=== PATIENT | female | born 1990 | race Caucasian/White ===

== ENCOUNTER → 2017-11-14 18:53 | Outpatient (CLI) | payer MEDICAID, SELFPAY ==
[2017-11-17 19:21] LABS: Neisseria gonorrhoeae, NAA Negative (Negative)
== END ==
PROVIDERS: PCP Nurse Practitioner Obstetrics & Gynecology; Visit Provider Nurse Practitioner Obstetrics & Gynecology
DX: Z72.53 High risk bisexual behavior (principal)
CPT/HCPCS: 87491; 87591

== ENCOUNTER → 2019-09-02 14:49 | Outpatient (CLI) | payer MEDICAID, SELFPAY ==
[2019-09-02 15:14] LABS: Basophils % 0.2 % (0.1-2.0); Eosinophils % 0.3 % (0.1-12.0); Hematocrit 40.1 % (37.0-47.0); Hemoglobin 13.7 g/dL (12.2-16.2); Lymphocytes # 1.7 K/mm3 (0.7-4.5); Lymphocytes % 15.6 % (10-50); Mean Corpuscular HGB Conc 34.1 g/dL (31.8-35.4); Mean Corpuscular Hemoglobin 33.3 pg (27.0-31.2); Mean Corpuscular Volume 97.7 fl (81-99); Mean Platelet Volume 9.6 fl (7.4-10.4); Monocytes # 0.4 K/mm3 (0.1-1.0); Monocytes % 3.6 % (1.7-9.3); Neutrophils # 8.5 K/mm3 (1.8-7.8); Neutrophils % 80.3 % (37.0-80.0); Platelet Count 255 K/mm3 (142-424); Red Cell Distribution Width 12.3 % (11.5-17.5); White Blood Count 10.6 K/mm3 (4.8-10.8)
[2019-09-04 06:12] LABS: Hepatitis B Surface Antigen Negative (Negative); Hepatitis C Antibody >11.0 s/co ratio (0.0-0.9)
[2019-09-04 11:21] LABS: HIV Screen 4th Generation wRfx Non Reactive (Non Reactive); Rapid Plasma Reagin Ab Titer Non Reactive (NonRea<1:1); Rubella Antibodies, IgG 1.11 index (Immune >0.99)
== END ==
PROVIDERS: Visit Provider Nurse Practitioner Obstetrics & Gynecology
DX: Z34.90 Encounter for supervision of normal pregnancy, unspecified, unspecified trimester (principal)
CPT/HCPCS: 36415; 85025; 86592; 86703; 86762; 86850; 87340; 87380; G0432

== ENCOUNTER → 2019-09-05 09:37 | Outpatient (CLI) | payer MEDICAID, SELFPAY ==
--- NOTE | 2019-09-05 09:40 | US_ITS ---
PROCEDURE: US OB <= 14 WEEKS FETUS CLINICAL INDICATION: US T/V OB Dates COMPARISON: No exams were available for comparison FINDINGS: An intrauterine gestational sac is present with a pole with a crown-rump length of 5.37 cm correlating to gestational age of 12.14 week. heart tones are present with an FHR of 167 bpm. Unremarkable adnexa IMPRESSION: Single live IUP at 12 weeks 1 day. Estimated due date by Ultrasound is 03/18/2020 Dictated by: Joey Garcia MD 09/05/2019 17:38 Electronically signed by Joey Garcia MD in [facility] 09/05/2019 17:38
== END ==
PROVIDERS: Visit Provider Nurse Practitioner Obstetrics & Gynecology
DX: O26.841 Uterine size-date discrepancy, first trimester (principal)
CPT/HCPCS: 76801

== ENCOUNTER → 2019-11-03 14:18 | Outpatient (CLI) | payer OTHER, SELFPAY ==
--- NOTE | 2019-11-03 14:18 | US_ITS ---
PROCEDURE: US OB /MATERNAL DETAIL CLINICAL INDICATION: US OB Complete COMPARISON: US OB <= 14 WEEKS FETUS from 09/05/2019 FINDINGS: Single viable intrauterine gestation. position. Placenta: Cephalic posteriorplacenta grade 1. There is average amount fluid. The cervix appears satisfactory. Closed and measuring 3.5 centimeter in length. Complete survey performed and was unremarkable on the submitted images as in PACS. No discrete anomalies identified on survey imaging by technologist. Active fetus. Three-vessel cord with satisfactory umbilical cord insertion. 4- chamber heart noted. Survey of brain & ventricles Unremarkable. Face and neck survey unremarkable. Diaphragm and chest views unremarkable. Abdomen: Both kidneys noted and unremarkable. Stomach noted and satisfactory. Spine: Survey of the spine satisfactory with no anomalies identified nor imaged. Both arms and legs noted. Amniotic Fluid: Adequate. Maternal adnexa: No significant findings. Measurements: Average ultrasound age 20weeks 2days. Gestational Age 20weeks 2days Estimated due date by ultrasound age 0603/20/2020. Estimated weight 332g BPD = 20weeks 2days OFD = 21 weeks 1 day HC = 20weeks 1day AC = 20weeks 3days FL = 19weeks 6days Growth Percentile= 46Percent% Heart Rate = 146bpm Cerebellum = 19weeks 5days Humerus = 19weeks 6days HC/AC is 1.16 CI is 0.74 FL/BPD is 0.67 FL/AC is 0.21 IMPRESSION: Single living intrauterine gestation at 20 weeks 2 days. Dictated by: Chas Fulton 11/03/2019 16:27 Electronically signed by Chas Fulton in [facility] 11/03/2019 16:27
== END ==
PROVIDERS: PCP Nurse Practitioner Obstetrics & Gynecology; Visit Provider Nurse Practitioner Obstetrics & Gynecology
DX: Z36.0 Encounter for antenatal screening for chromosomal anomalies (principal)
CPT/HCPCS: 76811

== ENCOUNTER 2020-02-05 08:52 | Outpatient (CLI) | payer OTHER, SELFPAY ==
[2020-02-05 09:53] LABS: Glucose,Fasting 86 mg/dl (74-100)
[2020-02-05 10:50] VITALS: BP 108/61; PULSE 92; RESP 18; TEMP 36.2; O2SAT 99
[2020-02-05 11:11] LABS: Glucose 1 Hour 129 mg/dL (74-100)
== END 2020-02-05 11:05 | disposition home or self-care (01) ==
LOC: LAB 09:24 → INF 10:37
PROVIDERS: Visit Provider Nurse Practitioner Obstetrics & Gynecology
DX: Z34.90 Encounter for supervision of normal pregnancy, unspecified, unspecified trimester (principal)
CPT/HCPCS: 36415; 82951; 96372; J2790

== ENCOUNTER → 2020-02-18 16:58 | Outpatient (CLI) | payer OTHER, SELFPAY | PROVIDERS: Visit Provider Nurse Practitioner Obstetrics & Gynecology | DX: Z34.90 Encounter for supervision of normal pregnancy, unspecified, unspecified trimester (principal) | CPT/HCPCS: 86403 ==

== ENCOUNTER 2020-03-12 21:28 | Outpatient (CLI) | payer OTHER, SELFPAY ==
[2020-03-12 21:50] VITALS: BMI 25.7
[2020-03-12 21:55] LABS: Microscopic, Urine URINE MICROSCOPIC (MICROSCOPIC)
[2020-03-12 22:00] VITALS: BP 114/96; PULSE 103; RESP 18; TEMP 36.8; O2SAT 96; BMI 25.7
[2020-03-12 22:06] LABS: Appearance,Urine CLEAR (Clear); Bilirubin,Urine Negative (Negative); Blood, Urine Negative (Negative); Color,Urine DK YELLOW (Yellow); Glucose,Urine (UA) Negative (Negative); Ketones,Urine TRACE (Negative); Leukocyte Esterase,Urine Negative (Negative); Nitrate,Urine Negative (Negative); PH,Urine 6.5 (5.0-8.5); Protein,Urine TRACE (Negative); Specific Gravity, Urine >= 1.030 (1.005-1.030)
[2020-03-12 22:07] LABS: Amorphous Sediment,Urine Trace /lpf; Mucus,Urine 1+ /lpf
[2020-03-12 22:16] LABS: Barbiturates Screen,Urine Negative ng/ml (<200)
[2020-03-12 22:17] LABS: Benzodiazepines Screen,Urine Negative ng/ml (<200)
[2020-03-12 22:18] LABS: Cannabinoid Screen,Urine Negative ng/ml (<50)
[2020-03-12 22:19] LABS: Cocaine Screen,Urine Negative ng/ml (<300); Methadone Screen,Urine Negative ng/ml (<300)
[2020-03-12 22:20] LABS: Opiate Screen,Urine Negative ng/ml (<300)
[2020-03-12 22:21] LABS: Phencyclidine Screen,Urine Negative ng/ml (<25)
[2020-03-12 22:42] LABS: Amphetamine/Metha Screen,Urine Negative ng/ml (<1000)
== END 2020-03-12 23:00 | disposition home or self-care (01) ==
LOC: OBOUT 21:29 → OB 21:30
PROVIDERS: Obstetrics & Gynecology; Visit Provider Nurse Practitioner Obstetrics & Gynecology
DX: O60.03 Preterm labor without delivery, third trimester (principal); Z3A.38 38 weeks gestation of pregnancy
CPT/HCPCS: 59025; 80305; 81001; G0463

== ENCOUNTER 2020-03-19 05:22 | Inpatient (IN) | payer OTHER, SELFPAY ==
[2020-03-19 05:31] VITALS: BMI 26.2
[2020-03-19 06:29] LABS: Microscopic, Urine URINE MICROSCOPIC (MICROSCOPIC)
[2020-03-19 06:37] LABS: Appearance,Urine CLEAR (Clear); Bilirubin,Urine Negative (Negative); Blood, Urine Negative (Negative); Color,Urine YELLOW (Yellow); Glucose,Urine (UA) Negative (Negative); Ketones,Urine Negative (Negative); Leukocyte Esterase,Urine TRACE (Negative); Nitrate,Urine Negative (Negative); Protein,Urine Negative (Negative); Urobilinogen,Urine 0.2 EU/dl (0.2)
[2020-03-19 06:44] VITALS: BP 113/64; PULSE 90; RESP 18; TEMP 36.6; O2SAT 97; BMI 26.2
[2020-03-19 06:44] LABS: Basophils % 0.2 % (0.1-2.0); Eosinophils # 0.1 K/mm3 (0.0-0.4); Eosinophils % 0.9 % (0.1-12.0); Hemoglobin 12.8 g/dL (12.2-16.2); Lymphocytes # 2.6 K/mm3 (0.7-4.5); Lymphocytes % 22.2 % (10-50); Mean Corpuscular HGB Conc 34.7 g/dL (31.8-35.4); Mean Corpuscular Hemoglobin 32.4 pg (27.0-31.2); Mean Corpuscular Volume 93.5 fl (81-99); Mean Platelet Volume 8.3 fl (7.4-10.4); Monocytes # 0.5 K/mm3 (0.1-1.0); Monocytes % 4.1 % (1.7-9.3); Neutrophils # 8.4 K/mm3 (1.8-7.8); Neutrophils % 72.7 % (37.0-80.0); Platelet Count 234 K/mm3 (142-424); Red Blood Count 3.96 M/mm3 (4.20-5.40); Red Cell Distribution Width 13.6 % (11.5-17.5); White Blood Count 11.6 K/mm3 (4.8-10.8)
[2020-03-19 06:47] LABS: Barbiturates Screen,Urine Negative ng/ml (<200)
[2020-03-19 06:48] LABS: Amphetamine/Metha Screen,Urine Negative ng/ml (<1000); Benzodiazepines Screen,Urine Negative ng/ml (<200)
[2020-03-19 06:50] LABS: Cannabinoid Screen,Urine Negative ng/ml (<50)
[2020-03-19 06:51] LABS: Cocaine Screen,Urine Negative ng/ml (<300); Methadone Screen,Urine Negative ng/ml (<300)
[2020-03-19 06:52] LABS: Opiate Screen,Urine Negative ng/ml (<300)
[2020-03-19 06:53] LABS: Phencyclidine Screen,Urine Negative ng/ml (<25)
[2020-03-19 07:00] LABS: Coronavirus 19 IgG Antibody Negative (Negative); Coronavirus 19 IgM Antibody Negative (Negative)
[2020-03-19 07:10] VITALS: BP 98/54; PULSE 88; RESP 18; TEMP 36.5; O2SAT 98
[2020-03-19 07:12] LABS: Bacteria,Urine 1+ /lpf; Squamous Epithelial Cell,Urine 20-50 #/hpf (0-5)
--- NOTE | 2020-03-19 09:49 | HMH.LABNOT ---
Labor Note - Subjective: Date: 03/19/20 Time: 08:35 regular contraction - Objective: NST:: Reactive Contractions:: every 2-3 minutes Cervical Dilation:: 2 Effacement:: 50% Membranes: artificially ruptured Comment:: I ruptured membranes and there was clear fluid. - Fetus: Monitoring?: Yes monitoring type:: Internal and External Comment:: I inserted an IUPC. - Assessment: Labor progressing?: Yes Cephalopelvic disproportion?: No Patient Problems: All Active Problems (Acute) - Plan: Anesthesia for epidural?: Yes Continue to labor down?: Yes Plan for ?: No Continue to monitor?: Yes Start pushing?: No
--- NOTE | 2020-03-19 09:54 | HMH.OBAPHP ---
OB - H&P: HPI Antepartum - History of Present Illness Chief complaint: She is term and feels a lot of pressure. History of present illness: She is a 29-year-old 2 para 1 at 39+ weeks gestational age. She feels a lot of pressure and is quite uncomfortable. As result of that she requested to be induced. - History of Present Criteria for establishing EDC:: LMP confirmed by 1st trimester US care: good care Ultrasounds: normal 1st trimester US, normal mid trimester US Obstetrical complications: none Medical complications: none [facility] History I have reviewed the patient's past medical history: Yes *Have you ever received a pneumonia vaccine?: No *Have you received a flu vaccine this season?: No Laterality Cases: Bilateral: Other Other Surgeries: Yes: Other. No: Amputation: No Fractures: No - *Social History Smoking Status: Current every day smoker Tobacco Type: cigarettes # Packs/Day (cigarettes): 1 Alcohol Intake: never Substance Use Type: marijuana *Occupational Status:: unemployed *Travel in the last 8 weeks: None Family Hx:: No significant family history Para: 1 Review of Systems - Review of Systems Review of systems:: pertinent systems reviewed and negative unless documented below Meds Home Medications Medication Instructions Recorded Confirmed Type vitamin with calcium 1 tab PO DAILY tab 12/23/19 03/19/20 History no.72-iron 27 mg-folic acid 1 mg tablet RX: Famotidine [Acid Consumer Loan Officer] 20 mg PO DAILY 02/05/20 03/19/20 History RX: Ferrous Sulfate 325 mg PO DAILY 02/05/20 03/19/20 History Allergies Allergy/AdvReac Type Severity Reaction Status Date / Time Penicillins [PENICILLINS] Allergy Unknown THROAT Verified 03/10/20 10:02 [facility] - H&P: Exam - Physical Exam Vital signs: Temp Pulse Resp BP Pulse Ox 97.7 F 88 18 98/54 L 98 03/19/20 07:10 03/19/20 07:10 03/19/20 07:10 03/19/20 07:10 03/19/20 07:10 - Constitutional no acute distress - Routine HEENT Exam Head: Present: normocephalic Eye: Present: EOMI, PERRL ENT: Present: mucous membranes moist - Routine Neck Exam Present: supple, full ROM - Routine Respiratory Exam Absent: accessory muscle use (good air entry bilaterally), respiratory distress, wheezes, crackles - Routine Cardiovascular Exam Present: RRR. Absent: murmur - Routine Abdominal Exam Present: soft, normoactive bowel sounds. Absent: tenderness, distended, guarding - Routine Rectal Exam Patient deferred: visual exam, digital exam - Routine Exam Patient deferred: external exam, groin exam, perineal exam - Routine Extremities Exam Present: full ROM. Absent: cyanosis, edema - Routine Skin Exam Present: intact. Absent: cyanosis - Routine Neurological Exam Present: alert, oriented X3 - Routine Psychiatric Exam Present: normal affect OB - Results - Labs Labs: Short CBC 03/19/20 Range/Units 05:50 WBC 11.6 H (4.8-10.8) K/mm3 Hgb 12.8 (12.2-16.2) g/dL Hct 37.0 (37.0-47.0) % Plt Count 234 (142-424) K/mm3 Urine 03/19/20 Range/Units 05:37 Urine Color Yellow (Yellow) Urine Appearance Clear (Clear) Urine pH 7.0 (5.0-8.5) Ur Specific Bailey 1.020 (1.005-1.030) Urine Protein Negative (Negative) Urine Glucose (UA) Negative (Negative) OB - A/P Antepartum (1) Normal delivery Current visit: Yes Status: Acute - Additional Plan Planning to breastfeed?: No Plan: induction Additional Information:: She is 39 weeks with pressure and discomfort. As result of that we are electing to deliver her at term.
--- NOTE | 2020-03-19 10:17 | P.PN_ITS ---
[facility] Anesthesia Checklist - Patient Identification Patient Identification: Arm Band - Structural Data Admitted From: Inpatient Planned Operative Procedure/s: labor epidural Consent for Planned Operative Procedure(s) Verified: Yes Verified Documents: Surgical Consent, History and Physical - NPO Status Verified Time NPO: 00:00 - Additional verifications Anesthesia Reactions: No - Airway Assessment C-Spine Mobility Assessed: Yes TMJ Mobility Assessed: Yes Dentition: Good Dentition - Neurological Assessment Level of Consciousness: Awake, Alert - Anesthesia Plan Anesthesia Risk discussed: Yes Anesthesia Plan: Verified ASA Class: II Anesthesia Type: Epidural [facility] History *Have you ever received a pneumonia vaccine?: No *Have you received a flu vaccine this season?: No Anesthesia experience/problems:: nac Laterality Cases: Bilateral: Other Other Surgeries: Yes: Other. No: Amputation: No Fractures: No - *Social History Smoking Status: Current every day smoker Tobacco Type: cigarettes # Packs/Day (cigarettes): 1 Alcohol Intake: never Substance Use Type: marijuana *Occupational Status:: unemployed *Travel in the last 8 weeks: None Family Hx:: No significant family history Para: 1
--- NOTE | 2020-03-19 10:52 | HMH.LABNOT ---
Labor Note - Subjective: Date: 03/19/20 Time: 10:52 regular contraction - Objective: NST:: Non-reactive Contractions:: every 2-3 minutes Cervical Dilation:: 4 Effacement:: 50% Station: -1 Membranes: artificially ruptured - Fetus: Monitoring?: Yes monitoring type:: Internal and External - Assessment: Labor progressing?: Yes Cephalopelvic disproportion?: No Patient Problems: All Active Problems Normal delivery (Acute) (Acute) - Plan: Anesthesia for epidural?: Yes Continue to labor down?: Yes Plan for ?: No Continue to monitor?: Yes Comment:: She continues to do well. She is progressing. We will expect a vaginal delivery.
--- NOTE | 2020-03-19 12:07 | HMH.LABNOT ---
Labor Note - Subjective: Date: 03/19/20 Time: 12:07 regular contraction - Objective: NST:: Reactive Contractions:: every 2-3 minutes Cervical Dilation:: 4 Effacement:: 75% Station: -1 Membranes: artificially ruptured - Fetus: Monitoring?: Yes monitoring type:: Internal and External - Assessment: Labor progressing?: Yes Cephalopelvic disproportion?: No Patient Problems: All Active Problems Normal delivery (Acute) (Acute) - Plan: Anesthesia for epidural?: Yes Continue to labor down?: Yes Plan for ?: No Continue to monitor?: Yes
[2020-03-19 12:10] VITALS: BP 113/68; PULSE 86; RESP 16; TEMP 36.4
--- NOTE | 2020-03-19 14:41 | HMH.LABNOT ---
Labor Note - Subjective: Date: 03/19/20 Time: 14:41 regular contraction - Objective: NST:: Reactive Contractions:: every 2-3 minutes Cervical Dilation:: 9-10 Effacement:: 100% Station: +1 Membranes: artificially ruptured - Fetus: Monitoring?: Yes monitoring type:: Internal and External - Assessment: Labor progressing?: Yes Cephalopelvic disproportion?: No Patient Problems: All Active Problems Normal delivery (Acute) (Acute) - Plan: Anesthesia for epidural?: Yes Continue to labor down?: Yes Plan for ?: No Continue to monitor?: Yes Start pushing?: Yes
--- NOTE | 2020-03-19 14:57 | SW/DCPLANNER ---
Addendum entered by Suzanne De Luna 04/09/20 10:27: cord screen is NEGATIVE. Original Note: RECEIVED REFERRAL FOR THIS PATIENT THAT PRESENTED INTO FOR LABOR AND DELIVERY..... HER REFERRAL WAS TRIGGERED R/T A POSITIVE FOR THC HER FIRST VISIT.. SHE HAS BEEN APPROPRIATE SINCE SHE GOT TO THE HOSPITAL AND CURRENTLY IN LABOR.. SHE WENT FOR ALL HER VISITS AND NO OTHER +'S... SHE DOES HAVE ONE OTHER CHILD AND DOES HAVE CUSTODY.. WILL FOLLOW UP WITH HER ONCE THE CORD SCREEN COMES BACK AND IF IT SHOWS OTHER DRUGS, IT WILL BE REPORTED FOR INVESTIGATION. AT THIS TIME SHE DOES NOT WARRANT A VISIT FROM [employer]... PATIENT HAS SERVICES IN PLACE, HER STAY SHOULD BE SHORT UNLESS COMPLICATIONS APPEAR.. WILL CERTAINLY GIVE HER A CALL THE FIRST OF NEXT WEEK...
--- NOTE | 2020-03-19 15:08 | HMH.DN ---
- Delivery Note Delivery Date:: 03/19/20 Delivery Time:: 14:49 Anesthesia Type: Epidural Was labor medically induced?: Yes Induction method: per pitocin protocol Gestational age (weeks): 39 Infant delivered prior to 39 weeks?: No Infant Gender: Male at 1 minute: 8 at 5 minutes: 9 LAC or MLE?: LAC Delivery Procedure:: She is a 29-year-old 2 para 1 at 39 and 5 weeks gestational age. She was feeling lots of pressure and uncomfortable. As result of that we offered her induction of labor at term. She was started on IV oxytocin and had her membranes ruptured. Under labor epidural she progressed to full dilation and delivered spontaneously a liveborn male child at 2:49 PM in the afternoon of March 19, 2020. On deliver the head the anterior shoulder then rapidly delivered followed by the rest the infant's body atraumatically. The baby cried and was vigorous. We allowed the cord to continue to pulsate for 1 minute. The cord was then doubly clamped and cut and the was placed on the mother's abdomen for further care. The nurses assigned Apgars of 8 at 1 minute and 9 at 5 minutes. We then obtained cord blood as well as cord pH. She had a right labial tear on the superior aspect of the right labia and we repaired this with interrupted 3-0 Vicryl Rapide suture. She has O Rh- blood, she is rubella immune and was group B streptococcus negative. She plans to bottlefeed. Her mail service coordinator Dr. Rodriguez. Estimated blood loss was approximately 600 cc. Laceration:: labial Placental Delivery Description: Spontaneous
[2020-03-19 15:10] LABS: Cord Blood PH 7.39 (7.35-7.45)
[2020-03-19 16:20] VITALS: BP 121/72; PULSE 93; RESP 16; TEMP 36.4
[2020-03-20 07:04] LABS: Hematocrit 28.6 % (37.0-47.0); Hemoglobin 10.1 g/dL (12.2-16.2)
[2020-03-20 07:37] VITALS: BP 114/69; PULSE 84; RESP 16; TEMP 36.5; O2SAT 97
--- NOTE | 2020-03-20 10:06 | HMH.ACPN2 ---
Internal Medicine - PN: Subj *Date: 03/20/20 *Time: 10:06 Interval history: She is doing well this morning. She is eating and drinking and ambulating. She is breast-feeding. She had some ooze from her laceration in the vagina last night. I came in around midnight and under local anesthetic I placed a couple of sutures. This morning she is doing much better. Her uterus is well contracted. Her lochia is minimal. Exam Vital signs and Labs for Last 24 Hours: Temp Pulse Resp BP Pulse Ox 97.7 F 84 16 114/69 97 03/20/20 07:37 03/20/20 07:37 03/20/20 07:37 03/20/20 07:37 03/20/20 07:37 Laboratory Results - last 24 hr 03/19/20 05:50: Antibody Identification Anti-D 03/19/20 11:49: Cord ABG pH 7.39 03/20/20 06:19: Hgb 10.1 L, Hct 28.6 L 03/20/20 06:19: Blood Type O Negative, Antibody Screen Negative, Screen Negative, Baby's Rh Status Positive I & O for Last 24 hours: Intake & Output 03/17/20 03/18/20 03/19/20 03/20/20 11:59 11:59 11:59 11:59 Weight 167 lb - Constitutional no acute distress - *Routine HEENT Exam Head: Present: normocephalic Eye: Present: EOMI, PERRL ENT: Present: mucous membranes moist Assessment and Plan (1) Normal delivery Current visit: Yes Status: Acute Category: Medical Code(s): O80 - Encounter for full-term uncomplicated delivery - Assessment and plan all Dx Assessment and Plan for all problems:: She is doing well this morning. She is eating and drinking and ambulating. She is breast-feeding. We will plan to send her home tomorrow.
[2020-03-20 12:28] VITALS: BP 112/61; PULSE 92; RESP 18; TEMP 36.7; O2SAT 97
[2020-03-20 20:00] VITALS: BP 111/67; PULSE 95; RESP 16; TEMP 36.9; O2SAT 100
[2020-03-21 04:03] VITALS: BP 126/58; PULSE 81; RESP 16; TEMP 36.7
[2020-03-21 08:00] VITALS: BP 98/50; PULSE 66; RESP 20; TEMP 36.9; O2SAT 99
--- NOTE | 2020-03-21 11:29 | HMH.DCSUM ---
General - General Admission date:: 03/19/20 Discharge date: 03/21/20 HPI HPI: She is a 29-year-old 2 para 1 at 39+ weeks gestational age. She was quite uncomfortable and as result of that we elected to induce her labor at term. Hospital Course Hospital Course: She was started on IV oxytocin had her membranes ruptured. She progressed to full dilation and delivered spontaneously a liveborn male child at 2:49 PM in the afternoon of March 19, 2020. The baby weighed 7 pounds 0 ounces and was 19 inches long. He had Apgars of 8 at 1 minute and 9 at 5 minutes. pH was 7.39. She did well post but had some bleeding and she had bilateral labial tears. The tear on the right-hand side had a small amount of ooze so I came in about 10 hours after her delivery and under local anesthetic placed a couple of sutures. This stopped her bleeding. Since then she has done well. Her hemoglobin is stable. She has O Rh- blood and has received RhoGam. She is rubella immune and was group B streptococcus negative. Her branch or department chief librarian Dr. Rodriguez. She is discharged home to follow-up with me in approximately 2 weeks time. She will continue with her vitamins and iron. She is taking [id number] analgesics for any discomfort. She is breast-feeding. Her condition on discharge is stable and improved. Rhogam Administration: Given Objective Vital signs: Temp Pulse Resp BP Pulse Ox 98.4 F 66 20 98/50 L 99 03/21/20 08:00 03/21/20 08:00 03/21/20 08:00 03/21/20 08:00 03/21/20 08:00 no acute distress - *Routine HEENT Exam Head: Present: normocephalic Eye: Present: EOMI, PERRL ENT: Present: mucous membranes moist DS: Diagnosis - Discharge Diagnosis (1) Normal delivery Status: Acute Discharge Plan - Patient Discharge Instructions ACTIVITY: No heavy lifting DIET: continue same diet Additional Instructions: NO HEAVY LIFTING, NO STRENUOUS ACTIVITY, NOTHING IN THE VAGINA FOR 6 WEEKS. Patient Instructions: Depression, Hemorrhage, DI for Labor and Delivery, Vaginal , DI for Pre-eclampsia, [facility] Post Discharge Instructions, Preventing the Spread of Coronavirus Discharge Instructions - Follow up Plan Follow up with: Adán Azevedo MD [Staff Physician] - Disposition: Home, Self-Custodial Medications: Home Medications Medication Instructions Recorded Confirmed Type vitamin with calcium 1 tab PO DAILY tab 12/23/19 03/19/20 History no.72-iron 27 mg-folic acid 1 mg tablet RX: Famotidine [Acid Director Operating Room] 20 mg PO DAILY 02/05/20 03/19/20 History RX: Ferrous Sulfate 325 mg PO DAILY 02/05/20 03/19/20 History Prescriptions/Medication Reconciliation: Continued vitamin with calcium no.72-iron 27 mg-folic acid 1 mg tablet 1 tab PO DAILY tab RX: Ferrous Sulfate 325 mg PO DAILY RX: Famotidine [Acid Director Operating Room] 20 mg PO DAILY - Problem Reconciliation Problems Reviewed?: Yes
== END 2020-03-21 12:04 | disposition home or self-care (01) | DRG 807 ==
PROVIDERS: Admitting Provider Nurse Practitioner Obstetrics & Gynecology; Visit Provider Nurse Practitioner Obstetrics & Gynecology
DX: O70.0 First degree perineal laceration during delivery (principal); Z37.0 Single live birth; Z3A.39 39 weeks gestation of pregnancy; Z23 Encounter for immunization
CPT/HCPCS: 59409; 59025; 80305; 81001; 82800; 85014; 85018; 85025; 85461; 86328; 86850; 86870; 94761; C1758; J2790